=== PATIENT | male | born 1985 | race Caucasian/White ===

== ENCOUNTER 2021-11-23 23:40 | Emergency (ER) | payer OTHER ==
[2021-11-24 00:33] LABS: BASOPHIL 0.2 % (0-2); EOSINOPHIL 0.1 % (0-5); HCT 45.7 % (42.0-52.0); HGB 16.2 g/dl (13.2-18.0); LYMPHOCYTE 4.9 % (15-48); MCH 32.1 pg (25.0-31.0); MCHC 35.4 g/dL (32.0-36.0); MCV 90.5 fL (78.0-100.0); MONOCYTE 5.1 % (0-12); MPV 10.7 fL (6.0-9.5); NEUTROPHIL 88.9 % (41-80); NRBC 0; PLT 172 K/uL (150-400); RBC 5.05 M/uL (4.70-6.00); RDW 11.7 % (11.5-14.0); WBC 8.8 K/uL (4.0-10.5)
[2021-11-24 00:49] LABS: ALBUMIN 4.3 g/dL (3.4-5.0); BILIRUBIN - TOTAL 0.7 mg/dL (0.2-1.0); BUN/CREAT RATIO (CALC) 6.3 RATIO; CREATININE 1.11 mg/dL (0.67-1.17); GLOBULIN (CALCULATION) 3.1 g/dL; POTASSIUM 3.3 mmol/L (3.5-5.1); TOTAL PROTEIN 7.4 g/dL (6.4-8.2)
[2021-11-24 00:53] LABS: LACTIC ACID 2.2 mmol/L (0.4-1.9)
[2021-11-24 00:53] LABS: INFLUENZA A NAA NEGATIVE (NEGATIVE)
[2021-11-24 00:55] LABS: CORONAVIRUS 2019 SARS-COV-2 POSITIVE (NEGATIVE)
[2021-11-24] MEDS ORDERED: PREDNISONE 20MG20 MG PO (02:20)
[2021-11-24] MEDS ORDERED: PHENERGAN25 M1 PO (02:20)
[2021-11-24] MEDS ORDERED: ONDANSETRON ODT4 MG PO (02:20)
== END 2021-11-24 02:43 | disposition home or self-care (01) ==
LOC: FER 23:40
PROVIDERS: Internal Medicine
DX: U07.1 COVID-19 (principal); F17.210 Nicotine dependence, cigarettes, uncomplicated; Z88.1 Allergy status to other antibiotic agents; Z28.310 Unvaccinated for COVID-19
CPT/HCPCS: 36415; 80053; 83605; 84145; 85025; 94640; 94664; J1100; J1885; J2550; J7120; U0002